=== PATIENT | male | born 2000 ===

== ENCOUNTER 2024-07-12 11:08 | Emergency (ER) | payer BC, SELFPAY ==
[2024-07-12 11:20] VITALS: BP 138/78
--- NOTE | 2024-07-12 12:44 | ED.GENMED ---
History of Present Illness
General
Chief Complaint: Numbness
Time Seen by Provider: 07/12/24 12:33
History of Present Illness
History of Present Illness:
24-year-old male presents the emergency department for evaluation of scapular back discomfort as well as intermittent paresthesia to the right fifth digit beginning yesterday. Denies any known trauma. Denies neck pain or fevers. [place] as though
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
Review of Systems
Review of Systems
Allergies reviewed?: Yes
All Other Systems: ROS reviewed and negative except as documented in HPI and ROS
Phy Exam
Physical Exam
Physical Exam:
GEN: Well appearing, NAD, WDWN
HEENT: Oral mucosa moist, no scleral icterus
Cardiac: Regular rate
Lung: No respiratory distress, no tachypnea
MSK: No gross deformity or injuries. Grossly nontender to the midline cervical and thoracic spine, C-spine range of motion is normal in all ibrahim. Patient does report slight increased symptoms with movement rotation of the neck. Bilateral upper
extremity strength is intact in all ibrahim, negative Tinel's sign to the carpal and cubital tunnel
Skin: Good color, no pallor or jaundice, no rashes
Neuro: AO x3, moves all extremities freely
Psych: Calm, cooperative
Course
Vital Signs
Initial and Last Documented VS:
Initial Vital Signs
Temp Pulse Resp BP Pulse Ox
98.6 F 107 18 138/78 98
07/12/24 11:20 07/12/24 11:20 07/12/24 11:20 07/12/24 11:20 07/12/24 11:20
Last Documented Vital Signs
Temp Pulse Resp BP Pulse Ox
98.6 F 107 18 138/78 98
07/12/24 11:20 07/12/24 11:20 07/12/24 11:20 07/12/24 11:20 07/12/24 11:20
MDM/Problems Addressed
MDM/Problems Addressed:
Suspect this is a mild brachial is causing his radiating symptoms, less likely cubital tunnel given exam findings. Will recommend NSAIDs patient hand surgery follow-up if symptoms worsen
*Critical Care Note
Total Time (30-74mins, 75-104mins- exclusive of procedures): Not Applicable
ED Attending Note
-
Portions of this chart may have been created with voice recognition software.� Occasional wrong word or��sound alike� substitutions may have occurred due to the inherent limitations of voice recognition software.
Discharge Plan
Departure
Patient Disposition: Home (Routine Discharge)
Date of Disposition: 07/12/24
Time of Disposition: 12:44
Patient with high blood pressure during this ER visit?: No
Discharge Problem:
Brachial neuritis
Instructions: Paresthesia (DC)
Referrals:
eJff Lancaster MD [Active] -
Activity Restrictions/Additional Instructions:
Take 440mg Aleve (naproxen) twice daily or 600mg (Advil/Motrin) every 6 hours for 7-10 days
Follow up with the below listed hand specialist if symptoms do not improve
Interventions
Interventions:
*Risk Screen - Suicide Last Done: 07/12/24 11:20
*General Assessment Last Done: 07/12/24 11:20
*Neglect/Abuse Screening Last Done: 07/12/24 11:20
ED- Fall Risk Assessment Last Done: 07/12/24 12:42
*Nursing Disposition Last Done: 07/12/24 12:52
ED- Neurological Assessment Last Done: 07/12/24 12:42
Discharge Date and Time
Discharge Date/Time: 07/12/24 12:53
Print Language: AUSTRIAN
== END 2024-07-12 12:53 | disposition home or self-care (01) ==
LOC: EMR 11:08
PROVIDERS: EMERGENCY PHYSICIAN Emergency Medicine
DX: M54.12 Radiculopathy, cervical region (principal); M54.6 Pain in thoracic spine; M62.81 Muscle weakness (generalized)
CPT/HCPCS: 99281